=== PATIENT | female | born 1970 | race African-American/Black ===

== ENCOUNTER 2016-12-09 09:24 | Emergency (ER) | payer OTHER ==
[~2016-12-09] VITALS: Ht 168.9 cm; Wt 123.0 kg
[~2016-12-09 09:24] MED LIST: ATENOLOL PO; HYDROCHLOROTHIAZIDE PO
[2016-12-09 10:31] VITALS: BP 137/87
== END 2016-12-09 13:06 | disposition home or self-care (01) ==
LOC: ER 12:05
DX: R13.10 Dysphagia, unspecified (principal); R49.0 Dysphonia; E11.9 Type 2 diabetes mellitus without complications; K21.9 Gastro-esophageal reflux disease without esophagitis; I10 Essential (primary) hypertension; Z98.890 Other specified postprocedural states
CPT/HCPCS: 70490; 81025; 99284